=== PATIENT | female | born 1995 | race Caucasian/White ===

== ENCOUNTER 2022-04-04 12:05 | Outpatient (CLI) | payer OTHER, SELFPAY ==
--- NOTE | ~2022-04-04 | XR_ITS ---
XR hip LT min 2V DATE: 04/04/2022 12:29 INDICATION: Chronic intermittent hip pain for years TECHNIQUE: AP and lateral views of left hip COMPARISON: None FINDINGS: No fracture or dislocation, avascular necrosis or bone destruction. Joint space is well pre served. The pubic symphysis and left sacroiliac joint are intact. IMPRESSION: Negative left hip Reviewed, dictated and finalized at location A. IMPRESSION: Negative left hip
== END 2022-04-04 12:06 | disposition home or self-care (01) ==
DX: M25.552 Pain in left hip (principal); M41.9 Scoliosis, unspecified
CPT/HCPCS: 73502

== ENCOUNTER 2023-10-17 14:15 | Emergency (ER) | payer OTHER, SELFPAY ==
--- NOTE | ~2023-10-17 | XR_ITS ---
EXAMINATION: XR chest 2V DATE: 10/17/2023 14:43 INDICATION: Chest pain. Shortness of breath. TECHNIQUE: Frontal and lateral views of the chest were obtained. COMPARISON: None. FINDINGS: There is mild scarring at the lung apices. The posterior costophrenic angles are not includ ed. No pleural effusion or pneumothorax. The heart size is normal. IMPRESSION: 1. Mild scarring at the lung apices. Reviewed, dictated and finalized at location A. LUGGER
--- NOTE | 2023-10-17 14:17 | ECG_ITS ---
Measurements Intervals [place] Rate: 94 P: 28 [place]: 200 QRS: -53 QRSD: 100 T: 14 QT: 342 QTc: 428 Interpretive Statements SINUS RHYTHM BORDERLINE AV CONDUCTION DELAY INCOMPLETE RIGHT BUNDLE BRANCH BLOCK LEFT ANTERIOR FASCICULAR BLOCK ABNORMAL ECG NO PREVIOUS ECG AVAILABLE FOR COMPARISON Electronically Signed On 10-17-2023 14:41:53 TRIM SAWYER by Aurelio Dixon D.O.
[2023-10-17 14:26] VITALS: BP 128/82; PULSE 94; RESP 18; TEMP 36.8; O2SAT 100
[2023-10-17 14:41] LABS: Basophils Percent Auto 0.4 % (0.2-1.2); Eosinophils Percent Auto 0.4 % (0-4.4); Hematocrit 42.2 % (37.0-47.0); Hemoglobin 13.7 g/dL (12.0-15.0); Immature Granulocyte Absolute 0.01 K/mm3 (0.00-0.031); Immature Granulocyte Percent A 0.2 % (0-0.5); Lymphocytes Absolute Auto 1.82 K/mm3 (0.9-3.2); Mean Corpuscular HGB Conc 32.5 g/dl (32-36); Mean Corpuscular Hemoglobin 28.4 pg (26-34); Mean Corpuscular Volume 87.6 fl (80-100); Mean Platelet Volume 9.3 fl (7.4-10.4); Monocytes Absolute Auto 0.5 K/mm3 (0.1-0.6); Neutrophils Absolute Auto 2.6 K/mm3 (1.3-6.7); Platelet Count Result 221 k/mm3 (150-375); Red Blood Count 4.82 M/mm3 (4.2-5.4); Red Cell Distribution Width 11.9 % (11.5-14.5); White Blood Count 4.9 K/mm3 (4.5-10.0)
[2023-10-17 14:51] LABS: Alanine Aminotransferase 18 U/L (6-35); Albumin Level 4.4 g/dL (3.5-5.1); Alkaline Phosphatase 65 U/L (38-126); Anion Gap 12 mmol/L (8-16); Aspartate Amino Transferase 18 U/L (14-36); Bilirubin,Total 0.5 mg/dL (0.2-1.3); Blood Urea Nitrogen 14 mg/dL (7-17); Calcium 9.9 mg/dL (8.4-10.2); Carbon Dioxide 19 mmol/L (22-30); Chloride 106 mmol/L (98-107); Estimated CRCL calculation 120 ml/min; Estimated Glomerular Filt Rate > 60; Glucose 103 mg/dL (65-110); Lipase 98 U/L (23-300); Potassium 3.8 mmol/L (3.4-5.0); Sodium 137 mmol/L (137-145)
[2023-10-17 14:54] LABS: Prothrombin Time 13.5 Seconds (11.1-14.7)
[2023-10-17 14:55] LABS: Partial Thromboplastin Time 28.6 SECONDS (22.3-36.8)
[2023-10-17 15:03] LABS: Troponin I < 0.012 ng/mL (0.000-0.034)
[2023-10-17 17:30] VITALS: PULSE 70; RESP 15; O2SAT 99
[2023-10-17 17:36] VITALS: PULSE 63
[2023-10-17 18:01] VITALS: PULSE 74; RESP 12; O2SAT 100
--- NOTE | 2023-10-17 18:09 | ED.CHESTPAIN ---
HPI - Chest Pain General Chief Complaint: Chest Pain Stated Complaint: chest pains and SOB x couple weeks Time Seen by Provider: 10/17/23 17:44 History of Present Illness HPI narrative: Patient is a 28-year-old female with history of IBS, scoliosis here today with chest pains. She states she has been having intermittent chest pains for several weeks. She does not believe there is any exacerbating or alleviating factors, they usually come an RN the left side of her chest occasionally radiates down to her left arm. These chest pains occur for couple of seconds when fully resolved. Occasional associated shortness of breath, no associated diaphoresis or nausea. No prior history of cardiac disease, no family history of cardiac disease at a young age that she is aware of. No prior history of PE or DVT, no recent travel, no recent long car rides. She does take oral contraceptives. Denies any calf pain or swelling. She noted a faint cough which began yesterday, no sick contacts, no fever chills. Related Data Home Medications Medication Instructions Recorded Confirmed dicyclomine 10 mg capsule 10 mg PO QID 09/29/23 drospirenone 3 mg-ethinyl 1 tablet PO DAILY 09/29/23 estradiol 0.02 mg tablet (MARCIO (28)) ferrous sulfate 325 mg (65 mg 325 mg PO DAILY 09/29/23 iron) tablet (FeroSul) psyllium husk 0.4 gram capsule 0.4 g PO DAILY 09/29/23 (Daily Fiber) Allergies Allergy/AdvReac Type Severity Reaction Status Date / Time cefuroxime [From Ceftin] Allergy Mild Unknown Verified 09/29/23 09:59 gluten Allergy Mild Unknown Verified 09/29/23 09:59 bug spray Allergy Mild Unknown Uncoded 09/29/23 09:59 Review of Systems Review of Systems: All systems reviewed & are unremarkable except as noted in HPI and below PMFSH Past Medical History Medical History (Updated 10/17/23 @ 19:09 by Comfort Prieto MD) Allergies Headache IBS (irritable bowel syndrome) Surgical History Surgical History (Updated 09/29/23 @ 10:04 by Cathy Estrada CMA) H/O oral surgery History of placement of ear tubes History of tonsillectomy and adenoidectomy [place] teeth removed Family History Family History (Updated 11/09/23 @ 10:05 by Cathy Estrada CMA) Other Cerebrovascular accident Depression Diabetes mellitus Heart disease Social History Social History (Updated 09/29/23 @ 10:06 by Cathy Estrada [facility]) Smoking status: Never smoker Alcohol intake: never Substance use: never Lack of Transportation: No Lack of Food: Never True Current Housing: I Have Housing Concerned About Future Housing: No Difficulty Paying Gas/Electric Bills: No Difficulty Paying for Meds: No Currently Unemployed: No Education: Bachelor's Degree Difficulty w/ Childcare or Family Care: No Exam Narrative: GENERAL: Well-appearing, well-nourished, and in no acute distress. HEAD: Normocephalic, atraumatic. EYES: PERRLA and EOMI. ENT: Nares clear. Mucous membranes moist. NECK: Supple. CHEST: Clear to auscultation. No respiratory distress. HEART: Regular rate and rhythm. Normal peripheral pulses. ABDOMEN: Soft, nontender, nondistended. EXTREMITIES: Normal range of motion. No edema. SKIN: Warm, dry, no rash. NEURO: No focal deficits. Alert and oriented x3. PSYCH: Normal mood and affect. Course Course Emergency Course: Chart review performed, patient here with chest pain and shortness of breath for weeks. She called PCP today and they sent her here to the emergency department for evaluation. Triage vitals normal. Triage workup reviewed, CBC within normal limits, CMP within normal limits, initial troponin is less than 0.012, repeat pending. Chest x-ray shows no acute process. Patient seen evaluated, nontoxic appearing. Repeat troponin is in process. Given age and lack of risk factors ACS is low risk. She is on oral contraceptive pills, cannot apply PERC criteria, will do screening D-dimer. Discussed plan
[2023-10-17 18:10] LABS: Troponin I < 0.012 ng/mL (0.000-0.034)
[2023-10-17 18:58] LABS: D Dimer 0.39 ug/mL (<0.48)
[2023-10-17 19:14] VITALS: BP 116/76; PULSE 73; RESP 18; O2SAT 99
== END 2023-10-17 19:16 | disposition home or self-care (01) ==
PROVIDERS: Emergency Medicine; Emergency Provider Student in an Organized Health Care Education/Training Program
DX: R07.89 Other chest pain (principal); K58.9 Irritable bowel syndrome, unspecified
CPT/HCPCS: 36415; 71046; 80053; 83690; 84484; 85025; 85380; 85610; 85730; 93005; 99284

== ENCOUNTER 2023-10-27 16:39 | Emergency (ER) | payer OTHER, SELFPAY ==
--- NOTE | ~2023-10-27 | XR_ITS ---
EXAMINATION: XR chest 2V DATE: 10/27/2023 17:24 INDICATION: Left chest pain. TECHNIQUE: Frontal and lateral views of the chest were obtained. COMPARISON: Chest 2 views 10/17/2023 FINDINGS: There is mild scarring at the lung apices. No pleural effusion or pneumothorax. The heart s ize is normal. IMPRESSION: 1. Stable mild scarring at the lung apices. Reviewed, dictated and finalized at location E. ISITION ANALYST
[2023-10-27 17:03] VITALS: BP 128/63; PULSE 91; RESP 20; TEMP 36.4; O2SAT 97
--- NOTE | 2023-10-27 17:08 | ECG_ITS ---
Measurements Intervals [place] Rate: 82 P: 31 [place]: 186 QRS: -89 QRSD: 85 T: 21 QT: 353 QTc: 412 Interpretive Statements SINUS RHYTHM INDETERMINATE AXIS PATTERN CONSISTENT WITH PULMONARY DISEASE COMPARED TO ECG 10/17/2023 14:26:11 NO SIGNIFICANT CHANGES Electronically Signed On 10-27-2023 19:20:13 MEMBER CERTIFICATION MANAGER by Brigitte Adame M.D.
[2023-10-27 17:28] LABS: Basophils Percent Auto 0.4 % (0.2-1.2); Eosinophils Percent Auto 0.3 % (0-4.4); Hemoglobin 14.7 g/dL (12.0-15.0); Immature Granulocyte Absolute 0.02 K/mm3 (0.00-0.031); Immature Granulocyte Percent A 0.3 % (0-0.5); Lymphocytes Percent Auto 23.9 % (18.3-44.2); Mean Corpuscular HGB Conc 33.4 g/dl (32-36); Mean Corpuscular Hemoglobin 28.5 pg (26-34); Mean Corpuscular Volume 85.4 fl (80-100); Monocytes Absolute Auto 0.4 K/mm3 (0.1-0.6); Monocytes Percent Auto 6.2 % (2.6-8.5); Neutrophils Absolute Auto 4.9 K/mm3 (1.3-6.7); Neutrophils Percent Auto 68.9 % (45.5-73.1); Platelet Count Result 267 k/mm3 (150-375); Red Blood Count 5.15 M/mm3 (4.2-5.4); Red Cell Distribution Width 11.9 % (11.5-14.5); White Blood Count 7.1 K/mm3 (4.5-10.0)
[2023-10-27 17:36] LABS: Alanine Aminotransferase 23 U/L (6-35); Albumin Level 4.7 g/dL (3.5-5.1); Alkaline Phosphatase 74 U/L (38-126); Anion Gap 11 mmol/L (8-16); Aspartate Amino Transferase 23 U/L (14-36); Bilirubin,Total 0.5 mg/dL (0.2-1.3); Blood Urea Nitrogen 14 mg/dL (7-17); Calcium 9.8 mg/dL (8.4-10.2); Carbon Dioxide 18 mmol/L (22-30); Chloride 107 mmol/L (98-107); Estimated CRCL calculation 120 ml/min; Estimated Glomerular Filt Rate > 60; Glucose 123 mg/dL (65-110); Lipase 105 U/L (23-300); Potassium 4.3 mmol/L (3.4-5.0); Sodium 136 mmol/L (137-145)
[2023-10-27 17:41] LABS: INR 0.9; Partial Thromboplastin Time 29.5 SECONDS (22.3-36.8); Prothrombin Time 12.9 Seconds (11.1-14.7)
[2023-10-27 17:48] LABS: Troponin I < 0.012 ng/mL (0.000-0.034)
--- NOTE | 2023-10-27 20:51 | ECG_ITS ---
Measurements Intervals [place] Rate: 76 P: 37 [place]: 202 QRS: -38 QRSD: 99 T: 28 QT: 380 QTc: 428 Interpretive Statements SINUS RHYTHM INDETERMINATE AXIS COMPARED TO ECG 10/27/2023 17:03:32 NO SIGNIFICANT CHANGES Electronically Signed On 10-29-2023 12:59:13 DIRECTOR OF ARCHIVES by Jayce Connor M.D.
[2023-10-27 21:03] VITALS: BP 109/74; PULSE 69; RESP 18; O2SAT 100
[2023-10-27 21:19] LABS: Troponin I < 0.012 ng/mL (0.000-0.034)
--- NOTE | 2023-10-27 22:14 | ED.CHESTPAIN ---
HPI - Chest Pain General Chief Complaint: Chest Pain Stated Complaint: need an ekg Time Seen by Provider: 10/27/23 22:04 History of Present Illness HPI narrative: Patient is a 28-year-old female who presents ER reporting that she needs a repeat EKG. She was sent by her PCP. She had been evaluated for chest pain previously in week and had a follow-up today. She reports she had 2 minutes of chest pain earlier this morning. Located left upper chest that was aching in nature. Resolved on its own. No fevers or chills or sweats. No exertional component. Reports heart disease in her grandfather but not her mother or father. No cough or cold symptoms. Related Data Home Medications Medication Instructions Recorded Confirmed dicyclomine 10 mg capsule 10 mg PO QID 09/29/23 drospirenone 3 mg-ethinyl 1 tablet PO DAILY 09/29/23 estradiol 0.02 mg tablet (MARCIO (28)) ferrous sulfate 325 mg (65 mg 325 mg PO DAILY 09/29/23 iron) tablet (FeroSul) psyllium husk 0.4 gram capsule 0.4 g PO DAILY 09/29/23 (Daily Fiber) Allergies Allergy/AdvReac Type Severity Reaction Status Date / Time cefuroxime [From Ceftin] Allergy Mild Unknown Verified 10/27/23 17:07 gluten Allergy Mild Unknown Verified 10/27/23 17:07 bug spray Allergy Mild Unknown Uncoded 10/27/23 17:07 Review of Systems Review of Systems: All systems reviewed & are unremarkable except as noted in HPI and below Constitutional: Constitutional: Reports no additional constitutional complaints ENT: Reports system reviewed and no additional complaints, except as documented Cardiovascular: Cardiovascular: Reports chest pain, Denies rapid heart rate and Denies radiating jaw, neck or arm pain Respiratory: Respiratory: Reports no additional respiratory complaints Musculoskeletal: Musculoskeletal: Reports no additional musculoskeletal complaints PMFSH Past Medical History Medical History (Updated 10/27/23 @ 22:18 by Mayo Snyder MD) Allergies Headache IBS (irritable bowel syndrome) Surgical History Surgical History (Updated 09/29/23 @ 10:04 by Cathy Estrada CMA) H/O oral surgery History of placement of ear tubes History of tonsillectomy and adenoidectomy [place] teeth removed Family History Family History (Updated 09/29/23 @ 10:05 by Cathy Estrada CMA) Other Cerebrovascular accident Depression Diabetes mellitus Heart disease Social History Social History (Updated 09/29/23 @ 10:06 by Cathy Estrada CMA) Smoking status: Never smoker Alcohol intake: never Substance use: never Lack of Transportation: No Lack of Food: Never True Current Housing: I Have Housing Concerned About Future Housing: No Difficulty Paying Gas/Electric Bills: No Difficulty Paying for Meds: No Currently Unemployed: No Education: Bachelor's Degree Difficulty w/ Childcare or Family Care: No Exam Narrative: GENERAL: Well-appearing, well-nourished, and in no acute distress. HEAD: Normocephalic, atraumatic. ENT: Mucous membranes moist. NECK: Supple. CHEST: Clear to auscultation. No respiratory distress. HEART: Regular rate and rhythm. Normal peripheral pulses. ABDOMEN: Soft, nontender, nondistended. EXTREMITIES: Normal range of motion. No edema. SKIN: Warm, dry, no rash. NEURO: Alert and oriented x3. PSYCH: Normal mood and affect. Course Course Emergency Course: Two set troponin negative. Labs normal. EKG unchanged from previous. Discussed with patient and she feels comfortable with treatment plan. Will place on anti-inflammatories to see if this helps her chest discomfort. Vital Signs Vital signs: Vital Signs Temperature 97.6 F 10/27/23 17:03 Pulse Rate 91 10/27/23 17:03 Respiratory Rate 20 10/27/23 17:03 Blood Pressure 128/63 10/27/23 17:03 Pulse Oximetry 97 10/27/23 17:03 Oxygen Delivery Room Air 10/27/23 17:03 Temperature 97.6 F 10/27/23 17:03 Pulse Rate 69
== END 2023-10-27 22:44 | disposition home or self-care (01) ==
PROVIDERS: Emergency Medicine; Emergency Provider Emergency Medicine
DX: R07.89 Other chest pain (principal); K58.9 Irritable bowel syndrome, unspecified; R94.31 Abnormal electrocardiogram [ECG] [EKG]
CPT/HCPCS: 36415; 71046; 80053; 83690; 84484; 85025; 85610; 85730; 93005; 99284